=== PATIENT | female | born 2000 | race Caucasian/White ===

== ENCOUNTER 2019-07-09 18:18 | Emergency (ER) | payer SELFPAY ==
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
[2019-07-09 19:35] VITALS: O2SAT 100
[2019-07-09 20:12] VITALS: BP 126/69; PULSE 84
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
== END 2019-07-09 20:12 | disposition home or self-care (01) ==
LOC: ED 18:18
DX: S20.212A Contusion of left front wall of thorax, initial encounter (principal); S80.00XA Contusion of unspecified knee, initial encounter; V43.52XA Car driver injured in collision with other type car in traffic accident, initial encounter; R07.89 Other chest pain
CPT/HCPCS: 71046; 73080; 73090; 73560; 93005; 99284